=== PATIENT | female | born 1985 | race Caucasian/White ===

== ENCOUNTER → 2021-08-15 | Outpatient (CLI) | payer OTHER ==
--- NOTE | 2021-08-15 14:25 | PFTRPT ---
Height: 67.00 Inches Weight: 204.00 Lbs BSA: 2.04 Diagnosis: R06.00 DATE: 08/15/2021 ORDERING PHYSICIAN: TONO Hollis Pre and post bronchodilator studies have excellent technical quality. Forced vital capacity is borderline in proportion. Obstructive index is therefore borderline as well. Expiratory limit of the flow-volume loop does suggest some nonspecific flow rate limitation. Only borderline bronchodilator response is identified. Total lung capacity is normal. Residual volume is in proportion. Diffusing capacity is normal. Hemoglobin is acceptable at 12.4. Airway resistance and conductance are normal. IMPRESSION: Minimal flow rate reduction with borderline bronchodilator response. Please correlate clinically. MTDD
== END ==
LOC: M CARPUL 13:46
PROVIDERS: ATTEND Physician Assistant
DX: R06.00 Dyspnea, unspecified (principal)

== ENCOUNTER → 2021-11-07 | Outpatient (CLI) | payer OTHER | LOC: M CARPUL 14:25 | PROVIDERS: ATTEND Physician Assistant | DX: I27.20 Pulmonary hypertension, unspecified (principal); R91.8 Other nonspecific abnormal finding of lung field; R06.00 Dyspnea, unspecified ==

== ENCOUNTER → 2022-03-15 | Outpatient (CLI) | payer OTHER | LOC: M SLEEP 20:00 | PROVIDERS: ATTEND Physician Assistant | DX: R06.83 Snoring (principal) ==

== ENCOUNTER → 2022-05-03 | Outpatient (CLI) | payer OTHER ==
[~2022-05-03] MED LIST: ISOVUE-370 76% 100ML VIAL As Ordered ONE
== END ==
LOC: M RAD 13:00
PROVIDERS: ATTEND Internal Medicine Pulmonary Disease
DX: R06.00 Dyspnea, unspecified (principal); R91.8 Other nonspecific abnormal finding of lung field
CPT/HCPCS: 78582; A9540; A9567; Q9967

== ENCOUNTER → 2022-05-03 | Outpatient (CLI) | payer OTHER | LOC: M RAD 13:09 | PROVIDERS: ATTEND Internal Medicine Pulmonary Disease | DX: I27.20 Pulmonary hypertension, unspecified (principal); R91.8 Other nonspecific abnormal finding of lung field; R06.00 Dyspnea, unspecified ==

== ENCOUNTER 2022-06-13 05:58 | Day surgery (SDC) | payer OTHER ==
[~2022-06-13] VITALS: Ht 170.2 cm; Wt 103.4 kg
[~2022-06-13 05:58] MED LIST changes: +ALBU8.5H; +ARNU1INH3; +AUGM0.0534; +CYCL-707; +HYDR-3490; -ISOVUE-370 76% 100ML VIAL As Ordered ONE; +MONT10TA97; +OMEP40CA5; +PARO30TA4
[2022-06-13] MEDS ORDERED: LIDOCAINE 4% INJ 5ML AMP INH ONE (06:00)
[2022-06-13] MEDS ORDERED: ALBUTEROL SULFATE 2.5 MG/0.5 ML INH NEB SOLN INH ONE (06:00)
[2022-06-13] MEDS ORDERED: LR 1,000 ML IV SCH ×2 (06:15→08:45)
[2022-06-13] MEDS ORDERED: LIDOCAINE 4% INJ 5ML AMP As Ordered ONE (07:13)
[2022-06-13] MEDS ORDERED: MIDAZOLAM INJ 2MG/2ML VIAL (J2250 PER 1MG) As Ordered ONE (07:16)
[2022-06-13] MEDS ORDERED: LIDOCAINE 1% SDV 30ML VIAL As Ordered ONE (07:16)
[2022-06-13] MEDS ORDERED: EPINEPHrine 1MG/10ML SYRINGE 1.5IN As Ordered ONE (07:17)
[2022-06-13] MEDS ORDERED: THROMBIN SOLN 5,000 UNITS VIAL As Ordered ONE (07:17)
[2022-06-13] MEDS ORDERED: fentaNYL 100 MCG/2 ML INJECTION As Ordered ONE (07:17)
[2022-06-13] MEDS ORDERED: CETACAINE SPRAY 5GM As Ordered ONE (07:18)
[2022-06-13] MEDS ORDERED: LIDOCAINE 2% 100MG/5ML SDV (FOR ANES.) As Ordered ONE (07:19)
[2022-06-13] MEDS ORDERED: ROCURONIUM BROMIDE 50 MG/5 ML VIAL As Ordered ONE (07:19)
[2022-06-13] MEDS ORDERED: propofoL 200 MG/20 ML VIAL As Ordered ONE ×2 (07:20→08:21)
[2022-06-13] MEDS ORDERED: dexameTHASONE 4 MG/ML 1ML VIAL (J1100 PER 1MG) As Ordered ONE (07:24)
[2022-06-13] MEDS ORDERED: ONDANSETRON 4MG 2ML VIAL As Ordered ONE (08:21)
[2022-06-13] MEDS ORDERED: SUGAMMADEX SODIUM 500 MG/5 ML VIAL (BRIDION) As Ordered ONE (08:21)
[2022-06-13] MEDS ORDERED: oxyCODONE 5MG TAB PO PRN (08:45)
[2022-06-13] MEDS ORDERED: fentaNYL 100 MCG/2 ML INJECTION IV PRN (08:45)
[2022-06-13] MEDS ORDERED: ONDANSETRON 4MG 2ML VIAL IV PRN (08:45)
[2022-06-13] MEDS ORDERED: HYDROMORPHONE HCL 0.5 MG/ 0.5 ML SYRINGE (J1170 PER 1) IV PRN (08:45)
[2022-06-13 10:00] VITALS: BP 141/80
== END 2022-06-13 10:05 | disposition home or self-care (01) ==
LOC: M SDC 05:58
PROVIDERS: ATTEND Internal Medicine Pulmonary Disease
DX: R91.8 Other nonspecific abnormal finding of lung field (principal); R06.00 Dyspnea, unspecified; R05.9 Cough, unspecified; I10 Essential (primary) hypertension; K21.9 Gastro-esophageal reflux disease without esophagitis; R21 Rash and other nonspecific skin eruption; G47.33 Obstructive sleep apnea (adult) (pediatric); F41.9 Anxiety disorder, unspecified; F32.A Depression, unspecified; Z79.51 Long term (current) use of inhaled steroids; Z79.899 Other long term (current) drug therapy; Z86.16 Personal history of COVID-19; Z98.84 Bariatric surgery status; G43.909 Migraine, unspecified, not intractable, without status migrainosus
CPT/HCPCS: 31623; 31624; 31627; 31628; 71045; 76000; 81025; 87070; 87071; 87102; 87116; 87205; 87206; 88104; 88305; J0171; J1100; J2250; J2405; J3010; S2900

== ENCOUNTER → 2022-08-03 | Outpatient (CLI) | payer OTHER ==
[~2022-08-03] MED LIST changes: +ISOVUE-370 76% 100ML VIAL As Ordered ONE
== END ==
LOC: M RAD 16:16
PROVIDERS: ATTEND Internal Medicine Pulmonary Disease
DX: R06.00 Dyspnea, unspecified (principal); K44.9 Diaphragmatic hernia without obstruction or gangrene
CPT/HCPCS: 71275; Q9967

== ENCOUNTER → 2024-07-27 | Outpatient (REF) ==
[~2024-07-27] MED LIST changes: -ISOVUE-370 76% 100ML VIAL As Ordered ONE
== END ==
LOC: M LABCFH 14:30
PROVIDERS: ATTEND Nurse Practitioner Family
DX: I26.99 Other pulmonary embolism without acute cor pulmonale (principal)